=== PATIENT | female | born 1950 | race Caucasian/White ===

== ENCOUNTER 2019-09-10 08:08 | Outpatient (CLI) | payer MEDICARE, SELFPAY ==
--- NOTE | 2019-09-10 08:12 | MM_ITS ---
WS: [id number] BILATERAL SCREENING DIGITAL MAMMOGRAM WITH CAD HISTORY: SCREENING COMPARISON: 07/03/2018, 06/13/2017 and 09/21/2007 Bilateral CC and MLO views submitted. Computer aided detection analyzed. Breast composition: There are scattered areas of fibroglandular density. No suspicious masses, microc alcifications or new architectural distortion. There is an area of mild architectural distortion in t he medial LEFT breast in the CC projection only. This has been present on multiple prior examinations with no change. MM/[place] [id number] IMPRESSION: BI-RADS: 2-Benign FOLLOW UP: 1 Year Follow-up
== END 2019-09-10 08:09 | disposition home or self-care (01) ==
LOC: RADSHAW 08:10
PROVIDERS: Family Provider Family Medicine; PCP Family Medicine; Visit Provider Family Medicine
DX: Z12.31 Encounter for screening mammogram for malignant neoplasm of breast (principal)
CPT/HCPCS: 77067

== ENCOUNTER 2020-10-19 08:44 | Outpatient (CLI) | payer MEDICARE, SELFPAY ==
--- NOTE | 2020-10-19 08:50 | MM_ITS ---
WS: [id number] SCREENING DIGITAL MAMMOGRAM WITH CAD HISTORY: SCREENING COMPARISON: 09/10/2019 and 07/03/2018 Bilateral CC and MLO views submitted. Computer aided detection analyzed. Breast composition: There are scattered areas of fibroglandular density. No suspicious masses, microc alcifications or architectural distortion. MM/[place] [id number] IMPRESSION: BI-RADS: 1-Negative FOLLOW UP: 1 Year Follow-up
== END 2020-10-19 08:45 | disposition home or self-care (01) ==
LOC: RADSHAW 08:47
PROVIDERS: PCP Family Medicine; Visit Provider Family Medicine
DX: Z12.31 Encounter for screening mammogram for malignant neoplasm of breast (principal)
CPT/HCPCS: 77067

== ENCOUNTER 2021-03-26 08:37 | Outpatient (CLI) | payer MEDICARE, SELFPAY ==
--- NOTE | 2021-03-26 08:44 | XR_ITS ---
WS: [id number] SCREENING DEXA SCAN [employer] (V3D) CLINICAL INFORMATION: POSTMENOPAUSAL COMPARISON: None. FINDINGS: The L1-L4 bone mineral density measures 1.269 g/cm2. This corresponds to a T score score of 0.7 and Z score of 1.5. Left femoral neck bone mineral density measures 0.836 g/cm2. This corresponds to a T score of -1.4 an d Z score of -0.5. Right femoral neck bone mineral density measures 0.811 g/cm2. This corresponds to a T score -1.6of an d Z score of -0.7. Mean femoral neck bone mineral density measures 0.824 g/cm2. This corresponds to a T score of -1.5 an d Z score of -0.6. XR/XR DEXA axial skeleton* [id number] IMPRESSION: Osteopenia in the femoral necks. Normal bone mineralization in the lumbar spine . Patient's FRAX calculated 10 year probability for major osteoporotic fracture i s 10.8 % and osteoporotic hip fracture is 2.0%.
== END 2021-03-26 08:38 | disposition home or self-care (01) ==
PROVIDERS: PCP Family Medicine; Visit Provider Nurse Practitioner Family
DX: Z78.0 Asymptomatic menopausal state (principal); M85.88 Other specified disorders of bone density and structure, other site
CPT/HCPCS: 77080

== ENCOUNTER 2021-11-20 08:15 | Outpatient (CLI) | payer MEDICARE, SELFPAY ==
--- NOTE | 2021-11-20 08:21 | MM_ITS ---
WS: [id number] VIEWS: MLO and CC views both breasts. 3D digital tomosynthesis is also included in this exam. Comparison made with prior exam of 10/15/2013, 06/11/2016, 07/03/2018, 09/10/2019, and 10/19/2020.. Findings: There was no sign of mass, architectural distortion or suspicious calcification in either breast. Sc attered fibroglandular densities MM/[place] [id number] Impression: BI-RADS: 2-Benign FOLLOW-UP: 1 Year Follow-up This mammogram was also analyzed by the Computer Aided Detection System [employer].
== END 2021-11-20 08:16 | disposition home or self-care (01) ==
LOC: RAD 08:18
PROVIDERS: PCP Family Medicine; Visit Provider Family Medicine
DX: Z12.31 Encounter for screening mammogram for malignant neoplasm of breast (principal)
CPT/HCPCS: 77063; 77067

== ENCOUNTER 2022-11-22 11:35 | Outpatient (CLI) | payer MEDICARE, SELFPAY ==
--- NOTE | 2022-11-22 11:49 | MM_ITS ---
WS: [id number] Bilateral screening 3D tomosynthesis digital mammogram, 11/22/2022 Clinical Data: SCREEN Comparison: 11/20/2021, 10/19/2020, 09/10/2019, 07/03/2018, 06/13/2017, 06/11/2016, 10/15/2013, 10/12/2008, 09/21/2007, 07/28/2006, 07/18/2006. Findings: The breast parenchymal pattern shows fibroglandular tissue. No spiculated masses or clustered calcifi cations are seen. There are no secondary signs of carcinoma. There are mole markers on both breasts. MM/[place] [id number] Impression: 1. Negative bilateral mammogram unchanged. 2. Recommend annual screening mammograms. BIRADS: 1-Negative FOLLOW UP: 1 Year Follow-up The CAD clerical car checker was used.
== END 2022-11-22 11:36 | disposition home or self-care (01) ==
LOC: RAD 11:38
PROVIDERS: PCP Family Medicine; Visit Provider Family Medicine
DX: Z12.31 Encounter for screening mammogram for malignant neoplasm of breast (principal)
CPT/HCPCS: 77063; 77067

== ENCOUNTER 2023-05-27 12:46 | Outpatient (CLI) | payer MEDICARE, SELFPAY ==
--- NOTE | 2023-05-27 12:56 | XR_ITS ---
WS: [id number] SCREENING DEXA SCAN [facility] CLINICAL INFORMATION: POSTMENOPAUSAL COMPARISON: 2020 FINDINGS: The L1-L4 bone mineral density measures 1.305 g/cm2. This corresponds to a T score score of 1.0 and Z score of 1.8. Left femoral neck bone mineral density measures 0.812 g/cm2. This corresponds to a T score of -1.6 an d Z score of -0.6. Right femoral neck bone mineral density measures 0.846 g/cm2. This corresponds to a T score -1.3of an d Z score of -0.3. Mean femoral neck bone mineral density measures 0.829 g/cm2. This corresponds to a T score of -1.4 an d Z score of -0.5. IMPRESSION: Normal bone mineralization lumbar spine. Osteopenia femoral necks. Patient's FRAX calculated 10 year probability for major osteoporotic fracture is 11.7% and osteoporot ic hip fracture is 2.6%. Bone mineral density of the lumbar spine increased 2.8% Bone mineral density of the femoral necks increased 0.6%
== END 2023-05-27 12:47 | disposition home or self-care (01) ==
LOC: RAD 12:47
PROVIDERS: PCP Family Medicine; Visit Provider Physician Assistant
DX: Z78.0 Asymptomatic menopausal state (principal); M85.88 Other specified disorders of bone density and structure, other site
CPT/HCPCS: 77080

== ENCOUNTER 2024-04-07 08:49 | Outpatient (CLI) | payer MEDICARE, SELFPAY ==
--- NOTE | 2024-04-07 08:52 | MM_ITS ---
WS: [id number] SCREENING DIGITAL BREAST TOMOSYNTHESIS MAMMOGRAM WITH CAD HISTORY: SCREENING COMPARISON: 10/19/2020, 11/20/2021, 11/22/2022 Bilateral CC and MLO with tomosynthesis and synthetic mammography submitted. Computer aided detection analyzed. Breast composition: There are scattered areas of fibroglandular density. Focal area of architectural distortion medial LEFT breast near 3:00 at a posterior depth. This may be the site of the prior surge ry but the distortion appears more significant as compared to prior examinations although there is no mass. The remaining breasts are negative. MM/MM scr BI tomosynthesis [id number] IMPRESSION: BI-RADS: 0 - Incomplete: Need additional imaging evaluation. FOLLOW UP: Need Additional Imaging LEFT breast: Spot compression views (CC and MLO). True ML. Ultrasound to follow if abnormality persists.
== END 2024-04-07 08:50 | disposition home or self-care (01) ==
LOC: RAD 08:50
PROVIDERS: PCP Family Medicine; Visit Provider Family Medicine
DX: Z12.31 Encounter for screening mammogram for malignant neoplasm of breast (principal)
CPT/HCPCS: 77063; 77067

== ENCOUNTER 2024-06-01 10:36 | Outpatient (CLI) | payer MEDICARE, SELFPAY ==
--- NOTE | 2024-06-01 10:39 | MM_ITS ---
WS: [id number] ADDITIONAL VIEWS LEFT MAMMOGRAM with tomosynthesis. LEFT BREAST ULTRASOUND HISTORY: ABNORMAL MAMMOGRAM COMPARISON: 04/07/2024, 11/22/2022, 11/20/2021 LEFT MAMMOGRAM: Spot compression views and true ML with tomosynthesis and sympathetic mammography. The architectural distortion persists in the medial LEFT breast near 9:00. This is best seen in the C C projection. The prior biopsy scar is close but not exactly at the area of the distortion. Ultrasoun d to follow. LEFT BREAST ULTRASOUND 2-D and color Doppler imaging submitted. There is no mass or distortion identified by ultrasound. MM/MM diag [place] tomosynthesis [id number] IMPRESSION: BI-RADS: 2- Benign FOLLOW UP: 1 Year Follow-up Favor the area of distortion in the medial LEFT breast is all postsurgical. The re is no mass identified or shadowing by ultrasound.
== END 2024-06-01 10:37 | disposition home or self-care (01) ==
LOC: RAD 10:38
PROVIDERS: PCP Family Medicine; Visit Provider Family Medicine
DX: R92.8 Other abnormal and inconclusive findings on diagnostic imaging of breast (principal)
CPT/HCPCS: 76642; 77061; G0279

== ENCOUNTER 2025-04-12 07:48 | Outpatient (CLI) | payer MEDICARE, SELFPAY ==
--- NOTE | 2025-04-12 07:54 | MM_ITS ---
WS: [id number] BILATERAL 3D TOMOSYNTHESIS DIGITAL SCREENING MAMMOGRAPHY WITH CAD CLINICAL INFORMATION: SCREENING HISTORY: Screening mammogram. No current complaints. COMPARISON: 2023 TECHNIQUE: Bilateral CC and MLO views. FINDINGS: The breasts are composed of heterogeneous fibroglandular density tissue, which can limit the detection of small underlying mass lesions. No suspicious mass, asymmetry, calcifications, or architectural distortion. No evidence of malignancy. Vascular calcification. MM/MM [facility] tomosynthesis [id number] IMPRESSION: DENSITY: The breasts are heterogeneously dense, which may obscure small masses. BI-RADS: 2 - Benign FOLLOW UP: 1 Year Follow-up Recommend return to annual screening mammography.
== END 2025-04-12 07:49 | disposition home or self-care (01) ==
LOC: RAD 07:49
PROVIDERS: PCP Family Medicine; Visit Provider Family Medicine
DX: Z12.31 Encounter for screening mammogram for malignant neoplasm of breast (principal); R92.333 Mammographic heterogeneous density, bilateral breasts; R92.323 Mammographic fibroglandular density, bilateral breasts; R92.1 Mammographic calcification found on diagnostic imaging of breast
CPT/HCPCS: 77063; 77067

== ENCOUNTER 2025-06-09 14:17 | Emergency (ER) | payer MEDICARE, SELFPAY ==
--- NOTE | 2025-06-09 14:14 | XR_ITS ---
WS: [id number] XR knee LT 3V* [id number] REASON FOR EXAM: fall FINDINGS: No acute fracture. Tibial plateaus and patella intact. Severe osteoarthritis with [id number] articulation in the medial knee joint compartment. Significant osteoarthritis in the patellofemoral joint space. XR/XR knee LT 3V* [id number] IMPRESSION: Severe osteoarthritis. No acute bone or joint abnormality.
[2025-06-09 14:27] VITALS: BP 141/81; PULSE 58; TEMP 36.4; O2SAT 99; BMI 35.4
--- NOTE | 2025-06-09 15:07 | ED_ITS ---
HPI - Extremity Injury (Lower) General: Chief Complaint: Extremity Injury, Lower Stated Complaint: fall left knee pain Time Seen by Provider: 06/09/25 14:59 Source: patient Mode of arrival: EMS Limitations: no limitations History of Present Illness: Patient is a 75-year-old female presents to ED today with a main complaint of left knee pain following a fall. Patient states she was walking in her bathroom when her foot got caught up on the uneven surface causing her to fall onto her left knee. Patient states she was not able to get up thus prompted her to contact EMS. She denies striking her head or LOC. She is not having any neck or back pain. She reports swelling and bruising to the left knee. She does have a small area of bruising to her right forearm but is not having any discomfort here. States she normally ambulates with a cane and did not have this earlier today which could have also contributed to her fall. complaint: knee injury Onset (ago): hour(s) Injury: Left: knee Place: home Severity: moderate Relieving factors: immobilization Exacerbating factors: weight bearing, movement and palpation Context: fall Associated symptoms: Reports no associated symptoms Other symptoms: none Related Data Allergies Allergy/AdvReac Type Severity Reaction Status Date / Time azithromycin Allergy Unknown Verified 06/09/25 14:32 erythromycin base Allergy Unknown Verified 06/09/25 14:32 Review of Systems Eyes: Denies: change in vision, blurry vision, photophobia, eye discharge, floaters or seeing flashes ENMT: Denies: throat pain, odynophagia, ear or mastoid pain, ear discharge, nasal discharge, epistaxis or sinus pain Card: Denies: chest pain, palpitations, lightheadedness, syncope or pre- syncope Resp: Denies: dyspnea or pain on inspiration GI: Denies: abdominal pain : Denies: flank pain or hematuria Musc: Reports: joint pain (L knee) and joint swelling (L knee); Denies: neck pain, back pain or extremity pain Neuro: Denies: headache(s), numbness in extremities, weakness in extremities, sensory changes or dizziness Physical Exam Const: COMMON NORMALS: no acute distress, no limitations, alert and well nourished GENERAL APPEARANCE: cooperative HENMT: COMMON NORMALS: normocephalic and atraumatic HEAD & SCALP: normal to inspection, normocephalic and atraumatic FACE & SINUS: normal facial exam Neck/C-Spine: COMMON NORMALS: full ROM CERVICAL SPINE: No Cervical spine tenderness Chest: COMMONS NORMALS: normal inspection of the chest and normal palpation of entire chest wall Resp: COMMON NORMALS: normal respiratory effort and clear to auscultation bilaterally AUSCULTATION: clear to auscultation bilaterally Cardio: COMMON NORMALS: regular rate and regular rhythm RATE: regular rate RHYTHM: regular rhythm Back/Pelvis: COMMON NORMALS: thoracic and lumbar spine normal to inspection and no thoracic nor lumbar tenderness Extremity: COMMON NORMALS: capillary refill normal GENERAL: Yes normal exam except as noted RIGHT UPPER EXTREMITY: Yes wrist (mild ecchymosis R volar forearm-scraped on fall; no pain) LEFT LOWER EXTREMITY: Yes knee joint (edema/ecchymosis medial L knee) Left knee: Yes ROM (pain with passive ROM) and Yes neurovascular exam (normal) Neuro: COMMON NORMALS: moves all extremities, no focal motor deficits, no sensory deficits noted and gait normal (ambulated well here with a walker) SENSORIUM/ORIENTATION: Yes alert Course Vital Signs: Vital signs: Vital Signs Temperature 97.5 F L 06/09/25 14:27 Pulse Rate 58 L 06/09/25 14:27 Blood Pressure 141/81 06/09/25 14:27 Pulse Oximetry 99 06/09/25 14:27 Oxygen Delivery Me thod Room Air 06/09/25 14:27 MDM - Extremity Injury (Lower) Medical Decision Making XR of the left knee obtained and unremarkable. Patient was ambulatory here with the help of a walker. She states she does have a cane at home and feels comfortable continuing to use this. Patient will be allowed discharge. Return to ED precautions discussed. Medical Records I reviewed the patient's medical records. Lab Data Radiology Impressions Knee X-Ray 06/09/25 14:14 IMPRESSION: Severe osteoarthritis. No acute bone or joint abnormality. All radiology interpretation(s) finalized by discharge Discharge Plan Discharge Patient Disposition: Home Clinical Impression: Contusion of left knee Qualifiers: Encounter type: initial encounter Qualified Code(s): S80.02XA - Contusion of left knee, initial encounter Condition: Stable Discharge Orders: Discharge ED (Routine); Ordered 06/09/25 Ordered By: Leann Chamorro Referrals: Ankit Ta MD [Primary Care Provider, Family Practice] Patient Instructions: Knee Pain (ED), Patient Portal & Jasmina Instructions Activity Restrictions/Additional Instructions: As we discussed, x-rays of your knee were unremarkable. We discussed icing and elevation. Making sure you are ambulating with assistance such as a cane or walker. Please follow-up with primary care in 1 to 2 weeks if symptoms are not improving or if pain persists. 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
== END 2025-06-09 15:27 | disposition home or self-care (01) ==
PROVIDERS: Emergency Provider Physician Assistant; PCP Family Medicine
DX: S80.02XA Contusion of left knee, initial encounter (principal); S50.11XA Contusion of right forearm, initial encounter; W19.XXXA Unspecified fall, initial encounter
CPT/HCPCS: 73562; 99283